=== PATIENT | female | born 1990 | race Two or more races ===

== ENCOUNTER 2019-03-31 12:03 | Emergency (ER) | payer SELFPAY ==
[~2019-03-31] VITALS: Ht 157.5 cm; Wt 65.8 kg
[2019-03-31 13:51] VITALS: BP 128/91
== END 2019-03-31 14:16 | disposition home or self-care (01) ==
LOC: ER 12:09
DX: N93.9 Abnormal uterine and vaginal bleeding, unspecified (principal)